=== PATIENT | female | born 1990 | race Caucasian/White ===

== ENCOUNTER 2018-12-09 02:12 | Emergency (ER) | payer MEDICAID ==
[~2018-12-09] VITALS: Ht 157.5 cm; Wt 72.6 kg
[2018-12-09 02:17] VITALS: Ht 157.5 cm; Wt 72.6 kg
[2018-12-09 03:35] VITALS: BP 113/48
== END 2018-12-09 03:35 | disposition home or self-care (01) ==
LOC: ED 02:12
DX: M10.9 Gout, unspecified (principal)
CPT/HCPCS: J1885; Q0092